=== PATIENT | male | born 1950 | race Caucasian/White ===

== ENCOUNTER → 2016-03-02 | Outpatient (CLI) | payer MEDICARE ==
[~2016-03-02] MED LIST: ACCUPRIL10 M1 PO; AMBIEN10 M1 PO; ASPIRIN ADULT L81 M1 PO; ATIVAN1 MG PO; CHOLESTROL MED; GLYBURIDE2.5 MG PO; HYDROCHLOROTHIA25 MG; LATANOPROST2.5 ML OP; LEVOFLOXACIN500 MG PO; LODINE; LODINE500 MG; LOPRESSOR50 M1 PO; LOTREL 5 MG-401 CAP; METFORMIN1000 MG PO; NORCO 325 MG-7.1 TAB PO; NORVASC10 MG PO; NORVASC5 MG PO; QUINAPRIL PO; QUINAPRIL40 MG PO; SIMVASTATIN40 MG PO; TAMSULOSIN HCL0.4 MG PO; WATER PILL
== END | disposition home or self-care (01) ==
LOC: RAD 12:08
DX: M25.551 Pain in right hip (principal); M25.552 Pain in left hip; M54.5 Low back pain

== ENCOUNTER 2016-11-17 09:59 | Emergency (ER) | payer MEDICARE ==
[~2016-11-17] VITALS: Wt 131.1 kg
[2016-11-17 11:43] LABS: BASO % 0.6 % (0.0-1.0); EOS # 0.2 10*3/uL (0.0-0.4); EOS % 3.4 % (1.0-4.0); HEMATOCRIT 34.8 % (42.0-52.0); HEMOGLOBIN 11.4 g/dl (14.0-18.0); LYMPH # 2.1 10*3/uL (1.3-4.4); LYMPH % 30.2 % (27.0-41.0); MEAN CELL VOLUME 90.6 fl (80.0-94.0); MEAN CORPUSCULAR HGB 29.7 pg (27.0-31.0); MEAN CORPUSCULAR HGB CONC 32.8 g/dl (33.0-37.0); MEAN PLATELET VOLUME 10.2 fl (9.6-12.3); MONO # 0.5 10*3/uL (0.1-1.0); MONO % 6.6 % (3.0-9.0); NEUT % 58.9 % (47.0-73.0); PLATELET COUNT AUTOMATED 132 10*3/uL (130-400); RED BLOOD COUNT 3.84 10*6/uL (4.50-5.90); RED CELL DISTRI WIDTH 15.8 % (0-14.5); WHITE BLOOD COUNT 6.9 10*3/uL (4.8-10.8)
[2016-11-17 11:51] LABS: ACT PARTIAL THROMBO TIME 22.8 SECONDS (20.8-31.5); INTERNATIONAL NORM RATIO 0.9 (2.0-3.5)
[2016-11-17 11:58] LABS: ALBUMIN 3.5 gm/dl (3.1-4.5); ALKALINE PHOSPHATASE 69 U/L (45-117); BUN 15 mg/dl (7-24); CHLORIDE 103 mmol/L (98-107); CREATININE 1.13 mg/dL (0.70-1.30); POTASSIUM 3.5 mmol/L (3.5-5.1); SGOT/AST 21 IU/L (3-35); SGPT/ALT 33 U/L (12-78); SODIUM 142 mmol/L (136-145); TOTAL PROTEIN 6.6 gm/dL (6.4-8.2)
== END 2016-11-17 13:22 | disposition home or self-care (01) ==
LOC: ED 09:59
PROVIDERS: Emergency Medicine
DX: K92.2 Gastrointestinal hemorrhage, unspecified (principal); I11.0 Hypertensive heart disease with heart failure; I50.9 Heart failure, unspecified; E78.5 Hyperlipidemia, unspecified; E11.9 Type 2 diabetes mellitus without complications; Z79.82 Long term (current) use of aspirin; Z91.041 Radiographic dye allergy status

== ENCOUNTER → 2016-12-21 | Day surgery (SDC) | payer MEDICARE ==
[~2016-12-21] VITALS: Ht 170.1 cm; Wt 131.5 kg
[~2016-12-21] MED LIST changes: +POTASSIUM CHLO20 ME3 PO
--- NOTE | ~2016-12-21 | O ---
[place], [place] OPERATIVE NOTE NAME: RINA EATON UNIT #: [id number] ROOM: DOCTOR: MICHELLE CROWELL MD BIRTHDATE: [birth year] DOS: 12/21/2016 INDICATIONS: This is a 66-year-old patient who presented with chief complaint of colonic screening, undergoing investigation. ALLERGIES: IBUPROFEN. PAST MEDICAL HISTORY: Diabetes, hypertension, hypercholesterolemia, obesity. FAMILY HISTORY: Noncontributory. PAST SURGICAL HISTORY: Bilateral total knee and cholecystectomy. SOCIAL HISTORY: Nonsmoker and social alcohol consumer. FAMILY HISTORY: Noncontributory. PROCEDURE: Today's procedure part of investigation is colonoscopy plus snare polypectomy plus piecemeal polypectomy. PREMEDICATION: Versed and Diprivan. SCOPE: Olympus folding colonoscope 10L video. REPORT: After putting the patient in the left lateral position and after application of lubricant to rectal pouch and digital examination, scope was introduced. Thereafter, under direct visualization, I advanced through the length of colon without difficulty. Rectal pouch piecemeal polypectomy was done on a sessile polyp approximately 5 cm inside the rectal sphincter anatomy and another snare polypectomy was done on sigmoid colon and another snare polypectomy was done on cecal polyp. Base of the cecum explored, appendiceal orifice identified, and ileocecal valve was defined and photographed. The scope was gradually withdrawn from ascending, transverse, descending colon. Diverticulosis of sigmoid colon identified. Air was suctioned out. The patient was extubated, tolerated procedure well. IMPRESSION: Sessile polypoid lesions of the colon x 3, status post snare and piecemeal polypectomy, diverticulosis. PLAN AND DISCUSSION: High fiber diet, low carbohydrate and low fatty food and followup as outpatient routinely with you in office, p.r.n. visit with us in GI Clinic. Thank you very much indeed for your kind referral. [place], [place] OPERATIVE NOTE NAME: RINA EATON Arlene UNIT #: [id number] ROOM: DOCTOR: MICHELLE CROWELL MD BIRTHDATE: [birth year] MICHELLE CROWELL MD CM:OPRECORD:OPERATIVE NOTE [id number] MICHELLE CROWELL MD 12/21/16 0953 interface
[2016-12-21 07:39] VITALS: BP 140/83
[2016-12-21 09:28] VITALS: BP 107/72
[2016-12-21 09:43] VITALS: BP 119/59
[2016-12-21 09:54] VITALS: BP 138/71
== END | disposition home or self-care (01) ==
LOC: SDC 12-15 08:45
DX: Z12.11 Encounter for screening for malignant neoplasm of colon (principal); D12.5 Benign neoplasm of sigmoid colon; D12.0 Benign neoplasm of cecum; D12.8 Benign neoplasm of rectum; E11.9 Type 2 diabetes mellitus without complications; I10 Essential (primary) hypertension; E78.00 Pure hypercholesterolemia, unspecified; Z90.49 Acquired absence of other specified parts of digestive tract; Z96.653 Presence of artificial knee joint, bilateral; K57.30 Diverticulosis of large intestine without perforation or abscess without bleeding; Z79.899 Other long term (current) drug therapy; Z98.890 Other specified postprocedural states; B19.20 Unspecified viral hepatitis C without hepatic coma; Z82.49 Family history of ischemic heart disease and other diseases of the circulatory system; Z88.8 Allergy status to other drugs, medicaments and biological substances

== ENCOUNTER → 2017-04-24 | Outpatient (CLI) | payer MEDICARE | END | disposition home or self-care (01) | LOC: RAD 10:58 | DX: M25.871 Other specified joint disorders, right ankle and foot (principal) ==

== ENCOUNTER → 2017-05-10 | Day surgery (SDC) | payer MEDICARE ==
[~2017-05-10] VITALS: Ht 170.1 cm; Wt 131.5 kg
--- NOTE | ~2017-05-10 | O ---
[place], [place] OPERATIVE NOTE NAME: RINA EATON UNIT #: [id number] ROOM: DOCTOR: MICHELLE CROWELL MD BIRTHDATE: [birth year] DOS: 05/10/2017 GASTROENDOSCOPIC REPORT INDICATIONS: A 67-year-old patient who presented with chief complaint of colonic ileus polyp history in the past and colonoscopy was not optimal in the past. ALLERGIES: IVP DYE. FAMILY HISTORY: Noncontributory. PAST SURGICAL HISTORY: Cholecystectomy, bilateral total knee. PAST MEDICAL HISTORY: Diabetes, hypertension, hyperlipidemia. SOCIAL HISTORY: Nonsmoker, rare alcohol consumer. PROCEDURE: Today's procedure part of investigation is colonoscopy plus snare polypectomy of transverse colon x 3 polyps. PREMEDICATION: Versed and Diprivan. SCOPE: Olympus folding colonoscope 10L video. REPORT: After putting the patient in left lateral position and application of lubricant to the scope, the scope was introduced. Thereafter, under direct visualization, I advanced the length of colon without difficulty. Three polypoid lesion in transverse colon with a snare was polypectomized. Base of the cecum explored, appendiceal orifice identified, ileocecal valve was defined. The patient extubated, tolerated the procedure well. IMPRESSION: Diverticulosis. Three sessile polypoid lesion, transverse colon, status post snare polypectomy. PLAN: High fiber fruit diet. ACTIVITY: Ad jenae. FOLLOWUP: As outpatient routinely with you in office, p.r.n. visit with us in GI Clinic. [place], [place] OPERATIVE NOTE NAME: RINA EATON Arlene UNIT #: [id number] ROOM: DOCTOR: MICHELLE CROWELL MD BIRTHDATE: [birth year] MICHELLE CROWELL MD CM:OPRECORD:OPERATIVE NOTE [id number] MICHELLE CROWELL MD 05/10/17 0953 interface
[2017-05-10 08:08] VITALS: BP 148/76
[2017-05-10 09:32] VITALS: BP 94/46
[2017-05-10 09:47] VITALS: BP 112/48
[2017-05-10 10:02] VITALS: BP 113/63
== END | disposition home or self-care (01) ==
LOC: SDC 05-04 09:30
DX: Z09 Encounter for follow-up examination after completed treatment for conditions other than malignant neoplasm (principal); D12.3 Benign neoplasm of transverse colon; K57.30 Diverticulosis of large intestine without perforation or abscess without bleeding; Z86.010 Personal history of colon polyps; Z90.49 Acquired absence of other specified parts of digestive tract; E11.9 Type 2 diabetes mellitus without complications; I10 Essential (primary) hypertension; Z96.653 Presence of artificial knee joint, bilateral; B19.20 Unspecified viral hepatitis C without hepatic coma; E78.00 Pure hypercholesterolemia, unspecified; Z82.49 Family history of ischemic heart disease and other diseases of the circulatory system

== ENCOUNTER 2019-03-06 03:26 | Emergency (ER) | payer MEDICARE ==
[~2019-03-06] VITALS: Ht 170.1 cm; Wt 129.3 kg
[2019-03-06 03:50] LABS: BASO # 0.1 10*3/uL (0.0-0.1); BASO % 0.5 % (0.0-1.0); EOS # 0.3 10*3/uL (0.0-0.4); HEMATOCRIT 39.4 % (42.0-52.0); HEMOGLOBIN 12.8 g/dl (14.0-18.0); LYMPH # 4.5 10*3/uL (1.3-4.4); LYMPH % 46.1 % (27.0-41.0); MEAN CELL VOLUME 90.2 fl (80.0-94.0); MEAN CORPUSCULAR HGB 29.3 pg (27.0-31.0); MEAN CORPUSCULAR HGB CONC 32.5 g/dl (33.0-37.0); MONO # 0.8 10*3/uL (0.1-1.0); NEUT # 4.1 10*3/uL (2.3-7.9); NEUT % 41.9 % (47.0-73.0); PLATELET COUNT AUTOMATED 164 10*3/uL (130-400); RED BLOOD COUNT 4.37 10*6/uL (4.50-5.90); RED CELL DISTRI WIDTH 14.8 % (0-14.5); WHITE BLOOD COUNT 9.7 10*3/uL (4.8-10.8)
[2019-03-06 04:02] LABS: ACT PARTIAL THROMBO TIME 21.6 SECONDS (20.0-32.1); INTERNATIONAL NORM RATIO 0.9 (2.0-3.5)
[2019-03-06 04:07] LABS: ALBUMIN 3.7 gm/dl (3.1-4.5); ALKALINE PHOSPHATASE 68 U/L (45-117); BUN 19 mg/dl (7-24); CHLORIDE 102 mmol/L (98-107); POTASSIUM 2.9 mmol/L (3.5-5.1); SGOT/AST 21 IU/L (3-35); SGPT/ALT 40 U/L (12-78); SODIUM 141 mmol/L (136-145); TOTAL PROTEIN 6.9 gm/dL (6.4-8.2)
[2019-03-06 04:09] LABS: TROPONIN I 0.092 ng/ml (<0.045)
== END 2019-03-06 05:26 | disposition short-term general hospital (02) ==
LOC: ED 03:26
PROVIDERS: Emergency Medicine
DX: I21.3 ST elevation (STEMI) myocardial infarction of unspecified site (principal); I95.9 Hypotension, unspecified; R00.1 Bradycardia, unspecified; R11.10 Vomiting, unspecified; R19.7 Diarrhea, unspecified; I11.0 Hypertensive heart disease with heart failure; I50.9 Heart failure, unspecified; E78.5 Hyperlipidemia, unspecified; E11.9 Type 2 diabetes mellitus without complications; E66.01 Morbid (severe) obesity due to excess calories; Z91.041 Radiographic dye allergy status; Z90.49 Acquired absence of other specified parts of digestive tract; Z79.899 Other long term (current) drug therapy; Z79.82 Long term (current) use of aspirin

== ENCOUNTER → 2019-09-09 | Outpatient (CLI) | payer MEDICARE | END | disposition home or self-care (01) | LOC: RESCLI 15:18 | DX: I10 Essential (primary) hypertension (principal); E78.5 Hyperlipidemia, unspecified; E11.9 Type 2 diabetes mellitus without complications; M19.90 Unspecified osteoarthritis, unspecified site; I21.3 ST elevation (STEMI) myocardial infarction of unspecified site; Z95.9 Presence of cardiac and vascular implant and graft, unspecified; Z79.82 Long term (current) use of aspirin; Z79.84 Long term (current) use of oral hypoglycemic drugs; Z79.899 Other long term (current) drug therapy; Z95.828 Presence of other vascular implants and grafts; Z90.49 Acquired absence of other specified parts of digestive tract; Z98.890 Other specified postprocedural states; Z91.041 Radiographic dye allergy status ==

== ENCOUNTER → 2019-11-19 | Outpatient (CLI) | payer MEDICARE | END | disposition home or self-care (01) | LOC: RESCLI 00:55 | PROVIDERS: ATTEND Emergency Medicine | DX: E11.9 Type 2 diabetes mellitus without complications (principal); I10 Essential (primary) hypertension; E55.9 Vitamin D deficiency, unspecified; E78.5 Hyperlipidemia, unspecified; N40.1 Benign prostatic hyperplasia with lower urinary tract symptoms; E11.65 Type 2 diabetes mellitus with hyperglycemia; Z95.9 Presence of cardiac and vascular implant and graft, unspecified; Z79.899 Other long term (current) drug therapy; Z90.49 Acquired absence of other specified parts of digestive tract; Z98.890 Other specified postprocedural states; Z88.8 Allergy status to other drugs, medicaments and biological substances ==

== ENCOUNTER 2020-03-14 15:47 | Emergency (ER) | payer MEDICARE ==
[~2020-03-14] VITALS: Ht 170.1 cm; Wt 117.9 kg
[2020-03-14 16:25] LABS: EOS # 0.1 10*3/uL (0.0-0.4); EOS % 2.8 % (1.0-4.0); HEMATOCRIT 41.2 % (42.0-52.0); LYMPH # 1.5 10*3/uL (1.3-4.4); LYMPH % 34.7 % (27.0-41.0); MEAN CELL VOLUME 90.7 fl (80.0-94.0); MEAN CORPUSCULAR HGB CONC 30.8 g/dl (33.0-37.0); MEAN PLATELET VOLUME 11.5 fl (9.6-12.3); MONO # 0.6 10*3/uL (0.1-1.0); MONO % 13.8 % (3.0-9.0); NEUT # 2.1 10*3/uL (2.3-7.9); NEUT % 48.5 % (47.0-73.0); PLATELET COUNT AUTOMATED 175 10*3/uL (130-400); RED BLOOD COUNT 4.54 10*6/uL (4.50-5.90); RED CELL DISTRI WIDTH 17.5 % (0-14.5); WHITE BLOOD COUNT 4.4 10*3/uL (4.8-10.8)
[2020-03-14 16:45] LABS: ALBUMIN 3.3 gm/dl (3.1-4.5); CREATININE 1.72 mg/dL (0.70-1.30); POTASSIUM 3.6 mmol/L (3.5-5.1); TOTAL PROTEIN 6.5 gm/dL (6.4-8.2)
[2020-03-14] MEDS ORDERED: ZOFRAN4 MG PO (17:28)
== END 2020-03-14 17:29 | disposition home or self-care (01) ==
LOC: ED 15:47
PROVIDERS: Student in an Organized Health Care Education/Training Program
DX: K52.9 Noninfective gastroenteritis and colitis, unspecified (principal); I10 Essential (primary) hypertension; E78.00 Pure hypercholesterolemia, unspecified; E11.9 Type 2 diabetes mellitus without complications; Z91.041 Radiographic dye allergy status; Z79.899 Other long term (current) drug therapy; Z79.82 Long term (current) use of aspirin; Z90.49 Acquired absence of other specified parts of digestive tract; Z96.653 Presence of artificial knee joint, bilateral

== ENCOUNTER → 2020-05-12 | Outpatient (CLI) | payer MEDICARE ==
[~2020-05-12] MED LIST changes: +ZOFRAN4 MG PO
== END | disposition home or self-care (01) ==
LOC: RESCLI 00:52
PROVIDERS: ATTEND Internal Medicine
DX: E55.9 Vitamin D deficiency, unspecified (principal); E11.9 Type 2 diabetes mellitus without complications; I10 Essential (primary) hypertension; N40.1 Benign prostatic hyperplasia with lower urinary tract symptoms; I25.10 Atherosclerotic heart disease of native coronary artery without angina pectoris; E78.5 Hyperlipidemia, unspecified; M19.90 Unspecified osteoarthritis, unspecified site; Z79.899 Other long term (current) drug therapy; Z79.82 Long term (current) use of aspirin; Z90.49 Acquired absence of other specified parts of digestive tract; Z95.828 Presence of other vascular implants and grafts; Z96.653 Presence of artificial knee joint, bilateral

== ENCOUNTER → 2021-04-28 | Outpatient (CLI) | payer MEDICARE | END | disposition home or self-care (01) | LOC: RESCLI 01:50 | PROVIDERS: ATTEND Student in an Organized Health Care Education/Training Program | DX: E11.65 Type 2 diabetes mellitus with hyperglycemia (principal); I10 Essential (primary) hypertension; E55.9 Vitamin D deficiency, unspecified; E78.2 Mixed hyperlipidemia; I25.10 Atherosclerotic heart disease of native coronary artery without angina pectoris; E87.6 Hypokalemia; N40.0 Benign prostatic hyperplasia without lower urinary tract symptoms; H40.9 Unspecified glaucoma; Z79.82 Long term (current) use of aspirin; Z90.49 Acquired absence of other specified parts of digestive tract; Z98.890 Other specified postprocedural states; Z79.899 Other long term (current) drug therapy ==

== ENCOUNTER → 2021-05-17 | Outpatient (CLI) | payer MEDICARE | END | disposition home or self-care (01) | LOC: CT 07:31 | PROVIDERS: ATTEND Nurse Practitioner Primary Care | DX: K57.30 Diverticulosis of large intestine without perforation or abscess without bleeding (principal); N20.0 Calculus of kidney; N28.1 Cyst of kidney, acquired; N40.0 Benign prostatic hyperplasia without lower urinary tract symptoms ==

== ENCOUNTER → 2021-06-08 | Outpatient (CLI) | payer MEDICARE | END | disposition home or self-care (01) | LOC: US 15:56 | PROVIDERS: ATTEND Nurse Practitioner Primary Care | DX: N28.1 Cyst of kidney, acquired (principal); N40.0 Benign prostatic hyperplasia without lower urinary tract symptoms ==

== ENCOUNTER → 2021-10-13 | Outpatient (CLI) | payer MEDICARE | END | disposition home or self-care (01) | LOC: RESCLI 04:39 | PROVIDERS: ATTEND Student in an Organized Health Care Education/Training Program | DX: E78.5 Hyperlipidemia, unspecified (principal); I11.9 Hypertensive heart disease without heart failure; I25.110 Atherosclerotic heart disease of native coronary artery with unstable angina pectoris; E11.9 Type 2 diabetes mellitus without complications; N40.1 Benign prostatic hyperplasia with lower urinary tract symptoms; H40.9 Unspecified glaucoma; I25.10 Atherosclerotic heart disease of native coronary artery without angina pectoris; E55.9 Vitamin D deficiency, unspecified; E11.65 Type 2 diabetes mellitus with hyperglycemia; E87.6 Hypokalemia; E78.2 Mixed hyperlipidemia; Z79.899 Other long term (current) drug therapy; Z90.49 Acquired absence of other specified parts of digestive tract; Z88.8 Allergy status to other drugs, medicaments and biological substances; Z79.01 Long term (current) use of anticoagulants; Z79.82 Long term (current) use of aspirin ==

== ENCOUNTER → 2022-01-13 | Outpatient (CLI) | payer MEDICARE ==
[2022-01-13 08:46] LABS: BILIRUBIN Negative (Negative); BLOOD Negative (Negative); CLARITY Clear (Clear); COLOR Yellow (Yellow); GLUCOSE 3+ (Negative); KETONE Trace (Negative); LEUKO ESTERASE Negative (Negative); NITRITE Negative (Negative); PH 5.5 (4.5-8.0); SPECIFIC GRAVITY >= 1.030 (1.001-1.030); UROBILINOGEN 0.2 E.U./dl (0.0-1.0)
[2022-01-13 09:14] LABS: HYALINE CAST 0-2; MUCOUS TRACE; RBC 0-2 rbc/hpf (0-2)
[2022-01-13 09:16] LABS: ALKALINE PHOSPHATASE 75 U/L (46-116); BUN 19 mg/dl (9-23); CHLORIDE 103 mmol/L (98-107); CHOLESTEROL 134 mg/dL (<200); CREATININE 1.29 mg/dL (0.70-1.30); LDL CHOLESTEROL 48 mg/dL (9-159); POTASSIUM 3.9 mmol/L (3.4-5.1); SGPT/ALT 23 U/L (10-49); SODIUM 139 mmol/L (136-145); TOTAL PROTEIN 7.1 gm/dL (6.0-8.0); TRIGLYCERIDES 239 mg/dl (<150)
== END | disposition home or self-care (01) ==
LOC: LAB 08:23
PROVIDERS: ATTEND Internal Medicine
DX: E11.65 Type 2 diabetes mellitus with hyperglycemia (principal); E55.9 Vitamin D deficiency, unspecified; E78.2 Mixed hyperlipidemia

== ENCOUNTER → 2022-05-31 | Outpatient (CLI) | payer MEDICARE ==
[2022-05-31 09:09] LABS: BILIRUBIN Negative (Negative); BLOOD Negative (Negative); CLARITY Clear (Clear); COLOR Yellow (Yellow); GLUCOSE 3+ (Negative); KETONE Negative (Negative); LEUKO ESTERASE Negative (Negative); NITRITE Negative (Negative); PH 5.5 (4.5-8.0); SPECIFIC GRAVITY >= 1.030 (1.001-1.030); UROBILINOGEN 0.2 E.U./dl (0.0-1.0)
[2022-05-31 09:38] LABS: FREE T4 1.01 ng/dl (0.89-1.76); POTASSIUM 4.6 mmol/L (3.4-5.1); THYROID STIM HORMONE (HS) 3.53 uIU/ml (0.550-4.780); TOTAL PROTEIN 6.6 gm/dL (6.0-8.0)
[2022-05-31 09:44] LABS: BACTERIA TRACE
[2022-05-31 09:50] LABS: VITAMIN D, 25-HYDROXY 58.4 ng/mL (30-100)
== END | disposition home or self-care (01) ==
LOC: LAB 08:15
PROVIDERS: ATTEND Internal Medicine
DX: E11.42 Type 2 diabetes mellitus with diabetic polyneuropathy (principal); E55.9 Vitamin D deficiency, unspecified; E78.2 Mixed hyperlipidemia; E04.9 Nontoxic goiter, unspecified

== ENCOUNTER → 2022-09-15 | Outpatient (CLI) | payer MEDICARE ==
[2022-09-15 08:25] LABS: BILIRUBIN Negative (Negative); BLOOD Negative (Negative); CLARITY Clear (Clear); COLOR Yellow (Yellow); GLUCOSE 3+ (Negative); KETONE Negative (Negative); LEUKO ESTERASE Negative (Negative); NITRITE Negative (Negative); SPECIFIC GRAVITY >= 1.030 (1.001-1.030)
[2022-09-15 08:49] LABS: FREE T4 1.01 ng/dl (0.89-1.76); POTASSIUM 4.6 mmol/L (3.4-5.1); TOTAL PROTEIN 6.7 gm/dL (6.0-8.0)
[2022-09-15 09:32] LABS: VITAMIN D, 25-HYDROXY 47.4 ng/mL (30-100)
[2022-09-15 10:10] LABS: EPITHELIAL CELLS 0-2; MUCOUS 1+
[2022-09-16 04:06] LABS: THYROID PEROXIDASE (TPO) AB <9 IU/mL (0-34)
[2022-09-19 15:07] LABS: THYROGLOBULIN ANTIBODY <1.0 IU/mL (0.0-0.9)
== END | disposition home or self-care (01) ==
LOC: LAB 07:35
PROVIDERS: ATTEND Internal Medicine
DX: E55.9 Vitamin D deficiency, unspecified (principal); E04.9 Nontoxic goiter, unspecified; E11.42 Type 2 diabetes mellitus with diabetic polyneuropathy; E78.5 Hyperlipidemia, unspecified

== ENCOUNTER → 2022-10-17 | Outpatient (CLI) | payer MEDICARE | END | disposition home or self-care (01) | LOC: RESCLI 01:32 | PROVIDERS: ATTEND Internal Medicine | DX: E11.9 Type 2 diabetes mellitus without complications (principal); R53.81 Other malaise; E11.65 Type 2 diabetes mellitus with hyperglycemia; E55.9 Vitamin D deficiency, unspecified; H40.9 Unspecified glaucoma; E78.2 Mixed hyperlipidemia; I10 Essential (primary) hypertension; N40.1 Benign prostatic hyperplasia with lower urinary tract symptoms; I25.110 Atherosclerotic heart disease of native coronary artery with unstable angina pectoris; E03.9 Hypothyroidism, unspecified; Z91.041 Radiographic dye allergy status; Z79.84 Long term (current) use of oral hypoglycemic drugs; Z79.899 Other long term (current) drug therapy; Z95.1 Presence of aortocoronary bypass graft; Z90.49 Acquired absence of other specified parts of digestive tract; Z98.890 Other specified postprocedural states ==

== ENCOUNTER → 2023-02-22 | Outpatient (CLI) | payer MEDICARE ==
[2023-02-22 08:57] LABS: BILIRUBIN Negative (Negative); BLOOD Negative (Negative); CLARITY Clear (Clear); COLOR Yellow (Yellow); GLUCOSE 3+ (Negative); KETONE Negative (Negative); LEUKO ESTERASE Negative (Negative); NITRITE Negative (Negative); PH 5.5 (4.5-8.0); SPECIFIC GRAVITY 1.025 (1.001-1.030); UROBILINOGEN 0.2 E.U./dl (0.0-1.0)
[2023-02-22 09:22] LABS: FREE T4 1.12 ng/dl (0.89-1.76); POTASSIUM 4.4 mmol/L (3.4-5.1); TOTAL PROTEIN 6.8 gm/dL (6.0-8.0)
[2023-02-22 09:26] LABS: RBC 0-2 rbc/hpf (0-2)
[2023-02-22 09:30] LABS: VITAMIN D, 25-HYDROXY 54.4 ng/mL (30-100)
[2023-02-23 04:06] LABS: THYROID PEROXIDASE (TPO) AB <9 IU/mL (0-34)
[2023-02-23 15:07] LABS: THYROGLOBULIN ANTIBODY <1.0 IU/mL (0.0-0.9)
== END | disposition home or self-care (01) ==
LOC: LAB 08:36
PROVIDERS: ATTEND Internal Medicine
DX: E11.40 Type 2 diabetes mellitus with diabetic neuropathy, unspecified (principal); E78.5 Hyperlipidemia, unspecified; E04.9 Nontoxic goiter, unspecified; E55.9 Vitamin D deficiency, unspecified

== ENCOUNTER → 2023-03-07 | Outpatient (CLI) | payer MEDICARE | END | disposition home or self-care (01) | LOC: US 00:58 | PROVIDERS: ATTEND Nurse Practitioner Primary Care | DX: E04.2 Nontoxic multinodular goiter (principal) ==

== ENCOUNTER → 2023-07-12 | Outpatient (CLI) | payer MEDICARE ==
[2023-07-12 10:53] LABS: BILIRUBIN Negative (Negative); BLOOD Negative (Negative); CLARITY Clear (Clear); COLOR Yellow (Yellow); GLUCOSE 3+ (Negative); KETONE Negative (Negative); LEUKO ESTERASE Negative (Negative); NITRITE Negative (Negative); PH 5.5 (4.5-8.0); SPECIFIC GRAVITY 1.025 (1.001-1.030); UROBILINOGEN 0.2 E.U./dl (0.0-1.0)
[2023-07-12 10:54] LABS: BASO % 0.7 % (0.0-1.0); EOS # 0.2 10*3/uL (0.0-0.4); EOS % 2.8 % (1.0-4.0); HEMATOCRIT 40.1 % (42.0-52.0); LYMPH # 1.6 10*3/uL (1.3-4.4); LYMPH % 27.9 % (27.0-41.0); MEAN CELL VOLUME 99.3 fl (80.0-94.0); MEAN CORPUSCULAR HGB 30.4 pg (27.0-31.0); MEAN CORPUSCULAR HGB CONC 30.7 g/dl (33.0-37.0); MEAN PLATELET VOLUME 11.1 fl (9.6-12.3); MONO # 0.4 10*3/uL (0.1-1.0); MONO % 7.6 % (3.0-9.0); NEUT # 3.4 10*3/uL (2.3-7.9); NEUT % 60.5 % (47.0-73.0); PLATELET COUNT AUTOMATED 132 10*3/uL (130-400); RED BLOOD COUNT 4.04 10*6/uL (4.50-5.90); RED CELL DISTRI WIDTH 17.1 % (0-14.5); WHITE BLOOD COUNT 5.7 10*3/uL (4.8-10.8)
[2023-07-12 11:23] LABS: FREE T4 1.09 ng/dl (0.89-1.76); RBC 0-2 rbc/hpf (0-2); TOTAL PROTEIN 6.8 gm/dL (6.0-8.0); WBC 0-2 wbc/hpf (0-5)
[2023-07-12 11:26] LABS: VITAMIN D, 25-HYDROXY 43.8 ng/mL (30-100)
[2023-07-13 04:07] LABS: THYROID PEROXIDASE (TPO) AB 10 IU/mL (0-34)
[2023-07-13 16:09] LABS: THYROGLOBULIN ANTIBODY <1.0 IU/mL (0.0-0.9)
== END | disposition home or self-care (01) ==
LOC: LAB 10:30
PROVIDERS: Nurse Practitioner Primary Care; ATTEND Internal Medicine
DX: E11.9 Type 2 diabetes mellitus without complications (principal); E04.9 Nontoxic goiter, unspecified; E55.9 Vitamin D deficiency, unspecified; E78.5 Hyperlipidemia, unspecified; G62.9 Polyneuropathy, unspecified

== ENCOUNTER → 2023-08-28 | Outpatient (CLI) | payer MEDICARE ==
[2023-08-28 08:00] LABS: BILIRUBIN Negative (Negative); BLOOD Negative (Negative); CLARITY Clear (Clear); COLOR Yellow (Yellow); GLUCOSE 3+ (Negative); KETONE Negative (Negative); LEUKO ESTERASE Negative (Negative); NITRITE Negative (Negative); PH 5.5 (4.5-8.0); SPECIFIC GRAVITY 1.025 (1.001-1.030); UROBILINOGEN 0.2 E.U./dl (0.0-1.0)
[2023-08-28 08:32] LABS: FREE T4 1.03 ng/dl (0.89-1.76); POTASSIUM 4.1 mmol/L (3.4-5.1); TOTAL PROTEIN 6.7 gm/dL (6.0-8.0)
[2023-08-28 08:39] LABS: VITAMIN D, 25-HYDROXY 52.1 ng/mL (30-100)
[2023-08-28 10:59] LABS: EPITHELIAL CELLS 0-2
[2023-08-29 14:09] LABS: THYROGLOBULIN ANTIBODY <1.0 IU/mL (0.0-0.9); THYROID PEROXIDASE (TPO) AB <9 IU/mL (0-34)
== END | disposition home or self-care (01) ==
LOC: LAB 07:22
PROVIDERS: ATTEND Internal Medicine
DX: E11.9 Type 2 diabetes mellitus without complications (principal); E04.9 Nontoxic goiter, unspecified; E55.9 Vitamin D deficiency, unspecified; E78.5 Hyperlipidemia, unspecified; G62.9 Polyneuropathy, unspecified

== ENCOUNTER → 2023-10-16 | Outpatient (CLI) | payer MEDICARE | END | disposition home or self-care (01) | LOC: RESCLI 02:50 | PROVIDERS: ATTEND Student in an Organized Health Care Education/Training Program | DX: D50.9 Iron deficiency anemia, unspecified (principal); E78.5 Hyperlipidemia, unspecified; Z79.82 Long term (current) use of aspirin; Z79.84 Long term (current) use of oral hypoglycemic drugs; Z79.899 Other long term (current) drug therapy ==

== ENCOUNTER → 2023-12-04 | Outpatient (CLI) | payer MEDICARE ==
[2023-12-04 08:46] LABS: BILIRUBIN Negative (Negative); BLOOD Negative (Negative); CLARITY Clear (Clear); COLOR Yellow (Yellow); GLUCOSE 3+ (Negative); KETONE Negative (Negative); LEUKO ESTERASE Negative (Negative); NITRITE Negative (Negative); PH 5.5 (4.5-8.0); SPECIFIC GRAVITY 1.025 (1.001-1.030); UROBILINOGEN 0.2 E.U./dl (0.0-1.0)
[2023-12-04 09:04] LABS: POTASSIUM 4.5 mmol/L (3.4-5.1); TOTAL PROTEIN 6.7 gm/dL (6.0-8.0)
[2023-12-04 09:26] LABS: RBC 0-2 rbc/hpf (0-2); WBC 0-2 wbc/hpf (0-5)
[2023-12-04 10:47] LABS: VITAMIN D, 25-HYDROXY 64.2 ng/mL (30-100)
== END | disposition home or self-care (01) ==
LOC: LAB 08:10
PROVIDERS: ATTEND Internal Medicine
DX: E11.9 Type 2 diabetes mellitus without complications (principal); E55.9 Vitamin D deficiency, unspecified; E78.5 Hyperlipidemia, unspecified; E04.9 Nontoxic goiter, unspecified; G62.9 Polyneuropathy, unspecified

== ENCOUNTER → 2024-03-05 | Outpatient (CLI) | payer MEDICARE ==
[2024-03-05 08:50] LABS: BILIRUBIN Negative (Negative); BLOOD Negative (Negative); CLARITY Clear (Clear); COLOR Yellow (Yellow); GLUCOSE 3+ (Negative); KETONE Negative (Negative); LEUKO ESTERASE Negative (Negative); NITRITE Negative (Negative); PH 5.5 (4.5-8.0); SPECIFIC GRAVITY 1.025 (1.001-1.030); UROBILINOGEN 0.2 E.U./dl (0.0-1.0)
[2024-03-05 09:20] LABS: VITAMIN D, 25-HYDROXY 58.1 ng/mL (30-100)
[2024-03-05 09:24] LABS: POTASSIUM 4.6 mmol/L (3.4-5.1); TOTAL PROTEIN 6.9 gm/dL (6.0-8.0)
[2024-03-05 10:20] LABS: RBC 0-2 rbc/hpf (0-2)
== END | disposition home or self-care (01) ==
LOC: LAB 08:32
PROVIDERS: ATTEND Internal Medicine
DX: E11.9 Type 2 diabetes mellitus without complications (principal); E78.5 Hyperlipidemia, unspecified; E55.9 Vitamin D deficiency, unspecified; E04.9 Nontoxic goiter, unspecified; G62.9 Polyneuropathy, unspecified

== ENCOUNTER 2024-03-08 23:51 | Emergency (ER) | payer MEDICARE ==
[~2024-03-08] VITALS: Ht 170.1 cm; Wt 124.7 kg
[2024-03-09] MEDS ORDERED: Ketorolac Tromethamine 60 MG/2 ML VIAL IM ONE (00:20)
[2024-03-09] MEDS ORDERED: Dexamethasone Sodium Phospha 20 MG/5 ML VIAL IM ONE (00:20)
[2024-03-09] MEDS ORDERED: Acetaminophen/Oxycodone 5 MG/325 MG TABLET PO ONE (00:25)
[2024-03-09] MEDS ORDERED: LIDOCAINE 1 EA PATCH T ONE (00:25)
[2024-03-09] MEDS ORDERED: CYCLOBENZAPRINE5 M3 PO (03:54)
[2024-03-09] MEDS ORDERED: TRAMADOL HCL50 MG PO (03:54)
== END 2024-03-09 04:50 | disposition home or self-care (01) ==
LOC: ED 23:51
DX: M54.50 Low back pain, unspecified (principal); M62.838 Other muscle spasm; Z79.899 Other long term (current) drug therapy; X58.XXXA Exposure to other specified factors, initial encounter; Y93.89 Activity, other specified; Y92.89 Other specified places as the place of occurrence of the external cause; Y99.8 Other external cause status

== ENCOUNTER → 2024-04-09 | Outpatient (CLI) | payer MEDICARE ==
[~2024-04-09] MED LIST changes: +CYCLOBENZAPRINE5 M3 PO; +TRAMADOL HCL50 MG PO
[2024-04-09 11:01] LABS: BASO % 0.7 % (0.0-1.0); EOS # 0.1 10*3/uL (0.0-0.4); EOS % 2.8 % (1.0-4.0); HEMATOCRIT 38.4 % (42.0-52.0); MEAN CELL VOLUME 99.2 fl (80.0-94.0); MEAN CORPUSCULAR HGB 30.2 pg (27.0-31.0); MEAN CORPUSCULAR HGB CONC 30.5 g/dl (33.0-37.0); MEAN PLATELET VOLUME 10.5 fl (9.6-12.3); MONO # 0.4 10*3/uL (0.1-1.0); MONO % 8.3 % (3.0-9.0); NEUT # 2.6 10*3/uL (2.3-7.9); NEUT % 56.3 % (47.0-73.0); PLATELET COUNT AUTOMATED 142 10*3/uL (130-400); RED BLOOD COUNT 3.87 10*6/uL (4.50-5.90); RED CELL DISTRI WIDTH 17.6 % (0-14.5); WHITE BLOOD COUNT 4.6 10*3/uL (4.8-10.8)
[2024-04-09 11:11] LABS: BILIRUBIN Negative (Negative); BLOOD Negative (Negative); CLARITY Clear (Clear); COLOR Yellow (Yellow); GLUCOSE 3+ (Negative); KETONE Negative (Negative); LEUKO ESTERASE Negative (Negative); NITRITE Negative (Negative); PH 5.5 (4.5-8.0); SPECIFIC GRAVITY 1.025 (1.001-1.030); UROBILINOGEN 0.2 E.U./dl (0.0-1.0)
[2024-04-09 11:25] LABS: BACTERIA TRACE; EPITHELIAL CELLS 0-2; MUCOUS TRACE; RBC 0-2 rbc/hpf (0-2); WBC 0-2 wbc/hpf (0-5)
[2024-04-09 11:35] LABS: POTASSIUM 4.5 mmol/L (3.4-5.1)
[2024-04-09 11:46] LABS: VITAMIN D, 25-HYDROXY 71.2 ng/mL (30-100)
== END | disposition home or self-care (01) ==
LOC: LAB 10:41
PROVIDERS: ATTEND Internal Medicine Nephrology
DX: N25.81 Secondary hyperparathyroidism of renal origin (principal); N18.30 Chronic kidney disease, stage 3 unspecified; E55.9 Vitamin D deficiency, unspecified; D63.1 Anemia in chronic kidney disease

== ENCOUNTER → 2024-05-15 | Outpatient (CLI) | payer MEDICARE ==
[2024-05-15 09:14] LABS: POTASSIUM 4.4 mmol/L (3.4-5.1)
== END | disposition home or self-care (01) ==
LOC: LAB 08:28
PROVIDERS: ATTEND Nurse Practitioner Family
DX: N18.30 Chronic kidney disease, stage 3 unspecified (principal)

== ENCOUNTER → 2024-06-18 | Outpatient (CLI) | payer MEDICARE ==
[2024-06-18 10:38] LABS: POTASSIUM 4.9 mmol/L (3.4-5.1); TOTAL PROTEIN 6.6 gm/dL (6.0-8.0)
== END | disposition home or self-care (01) ==
LOC: LAB 09:25
PROVIDERS: ATTEND Orthopaedic Surgery
DX: R53.83 Other fatigue (principal)

== ENCOUNTER → 2024-07-31 | Outpatient (CLI) | payer MEDICARE ==
[2024-07-31 10:31] LABS: BASO % 0.7 % (0.0-1.0); EOS # 0.2 10*3/uL (0.0-0.4); EOS % 3.3 % (1.0-4.0); MEAN CELL VOLUME 97.3 fl (80.0-94.0); MEAN CORPUSCULAR HGB 30.5 pg (27.0-31.0); MEAN CORPUSCULAR HGB CONC 31.4 g/dl (33.0-37.0); MEAN PLATELET VOLUME 11.1 fl (9.6-12.3); MONO # 0.5 10*3/uL (0.1-1.0); NEUT # 2.3 10*3/uL (2.3-7.9); NEUT % 51.1 % (47.0-73.0); PLATELET COUNT AUTOMATED 120 10*3/uL (130-400); RED CELL DISTRI WIDTH 16.5 % (0-14.5); WHITE BLOOD COUNT 4.5 10*3/uL (4.8-10.8)
[2024-07-31 10:37] LABS: BILIRUBIN Negative (Negative); BLOOD Negative (Negative); CLARITY Clear (Clear); COLOR Yellow (Yellow); GLUCOSE 3+ (Negative); KETONE Negative (Negative); LEUKO ESTERASE Negative (Negative); NITRITE Negative (Negative); PH 5.5 (4.5-8.0); SPECIFIC GRAVITY 1.025 (1.001-1.030); UROBILINOGEN 0.2 E.U./dl (0.0-1.0)
[2024-07-31 10:50] LABS: EPITHELIAL CELLS 0-2; WBC 0-2 wbc/hpf (0-5)
[2024-07-31 10:57] LABS: POTASSIUM 3.9 mmol/L (3.4-5.1)
[2024-07-31 11:22] LABS: VITAMIN D, 25-HYDROXY 57.2 ng/mL (30-100)
== END | disposition home or self-care (01) ==
LOC: LAB 09:52
PROVIDERS: ATTEND Nurse Practitioner Family
DX: N18.30 Chronic kidney disease, stage 3 unspecified (principal); D63.1 Anemia in chronic kidney disease; E55.9 Vitamin D deficiency, unspecified; N25.81 Secondary hyperparathyroidism of renal origin; Z79.899 Other long term (current) drug therapy

== ENCOUNTER → 2024-08-19 | Outpatient (CLI) | payer MEDICARE ==
[2024-08-19 09:19] LABS: BILIRUBIN Negative (Negative); BLOOD Negative (Negative); CLARITY Clear (Clear); COLOR Yellow (Yellow); KETONE Trace (Negative); LEUKO ESTERASE Negative (Negative); NITRITE Negative (Negative); PH 5.0 (4.5-8.0); SPECIFIC GRAVITY 1.020 (1.001-1.030); UROBILINOGEN 0.2 E.U./dl (0.0-1.0)
[2024-08-19 09:36] LABS: RBC 0-2 rbc/hpf (0-2)
[2024-08-19 09:56] LABS: VITAMIN D, 25-HYDROXY 65.6 ng/mL (30-100)
[2024-08-19 09:57] LABS: BUN 27.0 mg/dl (9-23); LDL CHOLESTEROL 69.0 mg/dL (9-159); SGPT/ALT 23.0 U/L (5-49)
== END | disposition home or self-care (01) ==
LOC: LAB 08:40
PROVIDERS: ATTEND Internal Medicine
DX: E11.9 Type 2 diabetes mellitus without complications (principal); E78.5 Hyperlipidemia, unspecified; E55.9 Vitamin D deficiency, unspecified; G62.9 Polyneuropathy, unspecified; E04.9 Nontoxic goiter, unspecified

== ENCOUNTER → 2024-08-30 | Outpatient (CLI) | payer MEDICARE | LOC: LAB 08:13 | PROVIDERS: ATTEND Internal Medicine | DX: E34.9 Endocrine disorder, unspecified (principal); Z79.899 Other long term (current) drug therapy ==

== ENCOUNTER → 2024-10-02 | Outpatient (CLI) | payer MEDICARE | LOC: US 08:31 | PROVIDERS: ATTEND Nurse Practitioner Family | DX: N28.1 Cyst of kidney, acquired (principal); K76.0 Fatty (change of) liver, not elsewhere classified; N18.30 Chronic kidney disease, stage 3 unspecified; N28.89 Other specified disorders of kidney and ureter ==

== ENCOUNTER → 2024-10-21 | Outpatient (CLI) | payer MEDICARE ==
[2024-10-21 09:59] LABS: BUN 26.0 mg/dl (9-23)
== END | disposition home or self-care (01) ==
LOC: LAB 09:04
PROVIDERS: ATTEND Nurse Practitioner Family
DX: N18.30 Chronic kidney disease, stage 3 unspecified (principal)

== ENCOUNTER → 2024-12-17 | Outpatient (CLI) | payer MEDICARE ==
[2024-12-17 08:38] LABS: BILIRUBIN Negative (Negative); BLOOD Negative (Negative); CLARITY Clear (Clear); COLOR Yellow (Yellow); KETONE Negative (Negative); LEUKO ESTERASE Negative (Negative); NITRITE Negative (Negative); PH 6.0 (4.5-8.0); SPECIFIC GRAVITY 1.025 (1.001-1.030); UROBILINOGEN 1.0 E.U./dl (0.0-1.0)
[2024-12-17 08:50] LABS: BACTERIA 1+; EPITHELIAL CELLS 0-2; RBC 0-2 rbc/hpf (0-2); WBC 0-2 wbc/hpf (0-5)
[2024-12-17 10:07] LABS: VITAMIN D, 25-HYDROXY 51.1 ng/mL (30-100)
[2024-12-17 10:31] LABS: BUN 28.0 mg/dl (9-23); LDL CHOLESTEROL 41.0 mg/dL (9-159); SGPT/ALT 31.0 U/L (5-49)
== END | disposition home or self-care (01) ==
LOC: LAB 08:13
PROVIDERS: ATTEND Internal Medicine
DX: E11.9 Type 2 diabetes mellitus without complications (principal); E55.9 Vitamin D deficiency, unspecified; E78.5 Hyperlipidemia, unspecified; E03.9 Hypothyroidism, unspecified; G62.9 Polyneuropathy, unspecified